=== PATIENT | female | born 1970 | race Caucasian/White ===

== ENCOUNTER 2018-08-08 13:10 | Emergency (ER) | payer OTHER ==
[2018-08-08] MEDS ORDERED: MEPERIDINE HCL 25 MG/0.5 ML ONE (13:59)
[2018-08-08] MEDS ORDERED: KETOROLAC 30 MG/ML INJ ONE (13:59)
[2018-08-08 14:13] LABS: Absolute Lymphocytes (CBC) 1.9 K/uL (0.7-4.9); Absolute Monocytes 0.8 K/uL (0.1-1.3); Absolute Neutrophil 3.6 K/uL (1.8-8.0); Basophils % 1.1 % (0-1.3); Eosinophils % 2.3 % (0-4.4); Hematocrit 39.2 % (36.0-45.0); Lymphocytes % 28.8 % (15.3-44.8); MPV 8.9 fL (7.6-11.3); Monocytes % 11.7 % (3.3-12.3); RBC Red Blood Cell Count 4.73 M/uL (3.86-4.86)
[2018-08-08 14:44] LABS: Potassium 4.3 mmol/L (3.5-5.1)
--- NOTE | 2018-08-08 15:09 | RAD REPORT ---
EXAM DESCRIPTION: CT - Abdomen Pelvis W Contrast - 08/08/2018 3:01 pm CLINICAL HISTORY: Fall, blunt force trauma to the right-side of the abdomen 2 days earlier COMPARISON: CT imaging January 18, 2018 TECHNIQUE: Biphasic, helical CT imaging of the abdomen and pelvis was performed following 100 ml non -ionic IV contrast. No oral contrast administered. All CT scans are performed using dose optimization technique as appropriate and may include automated exposure control or mA/KV adjustment according to patient size. FINDINGS: Trace amount of pleural fluid is seen in the bilateral posterior gutters. There is trace a telectasis. No fracture of the lower ribcage. No traumatic injury to the liver or right kidney. Gallbladder is absent. No biliary tree dilatation. Spleen, pancreas and kidneys show no parenchymal abnormalities. No adjacent stranding or hemorrhagic change. Symmetric renal function is seen with no hydronephrosis or suspicious renal mass. No pyelonephritis o r acute parenchymal process. No bladder abnormalities. No adrenal abnormalities. No dilated bowel loops or bowel wall thickening. No bowel injury evident. No free air, free fluid or inflammatory stranding. Patient has a small fat only umbilical hernia stable from prior imaging. [place] bassam and ovaries show no suspicious findings. No suspicious bony findings. Vascular calcifications are present. IMPRESSION: No pneumothorax, rib fracture or other acute finding in the right lung base. No injury to the solid abdominal viscera or bowel. No acute abdominal or pelvic finding.
--- NOTE | 2018-08-08 15:58 | ER ---
Nurse's Notes [facility] Name: Mony Taylor Age: 48 yrs Sex: Female : 1970 Arrival Date: 08/08/2018 Time: 13:17 Bed 7 Private MD: Dileep Blackwood T Diagnosis: Rib contusion Presentation: 08/08 13:23 Presenting complaint: Patient states: she fell on her right side Monday on a railing on ca1 the porch. She's taking Flexirel which was prescribed by the TeleMedicine. Transition of care: patient was not received from another setting of care. Onset of symptoms was August 06, 2018. Risk Assessment: Do you want to hurt yourself or someone else? Patient reports no desire to harm self or others. Initial Sepsis Screen: Does the patient meet any 2 criteria? No. Patient's initial sepsis screen is negative. Does the patient have a suspected source of infection? No. Patient's initial sepsis screen is negative. Care prior to arrival: None. 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 - Social history:: Smoking status: Patient uses tobacco products, smokes one-half pack cigarettes per day. - Ebola Screening: : No symptoms or risks identified at this time. - Family history:: not pertinent. - Hospitalizations: : No recent hospitalization is reported. Screenin:08 Abuse screen: Denies threats or abuse. Nutritional screening: No deficits noted. tw2 Tuberculosis screening: No symptoms or risk factors identified. Fall Risk None identified. Assessment: 13:35 General: Appears in no apparent distress. slender, well groomed, Behavior is calm, tw2 cooperative, appropriate for age. Pain: Complains of pain in right lateral chest and lower back. Neuro: Level of Consciousness is awake, alert, obeys commands, Oriented to person, place, time, situation. Cardiovascular: Heart tones S1 S2 Capillary refill < 3 seconds Patient's skin is warm and dry. Respiratory: Reports cough that is non-productive, "i was just getting over a cold before i feel and hit they rail and now it hurts when i cough" Airway is patent Respiratory effort is even, unlabored, Respiratory pattern is regular, symmetrical, Breath sounds are clear bilaterally. GI: No signs and/or symptoms were reported involving the gastrointestinal system. Abdomen is round non-distended, Bowel sounds present X 4 quads. : No signs and/or symptoms were reported regarding the genitourinary system. EENT: No signs and/or symptoms were reported regarding the EENT system. Derm: No signs and/or symptoms reported regarding the dermatologic system. Musculoskeletal: Circulation, motion, and sensation intact. Range of motion: intact in all extremities. 14:41 Reassessment: Patient appears in no apparent distress at this time. Patient and/or tw2 family updated on plan of care and expected duration. Pain level reassessed. Patient is alert, oriented x 3, equal unlabored respirations, skin warm/dry/pink. Patient states feeling better. 15:20 Reassessment: Patient appears in no apparent distress at this time. Patient and/or tw2 family updated on plan of care and expected duration. Pain level reassessed. Patient is alert, oriented x 3, equal unlabored respirations, skin warm/dry/pink. Patient states feeling better. 16:07 Reassessment: Patient appears in no apparent distress at this time. Patient and/or tw2 family updated on plan of care and expected duration. Pain level reassessed. Patient is alert, oriented x 3, equal unlabored respirations, skin warm/dry/pink. Patient states feeling better. Vital Signs: 13:31 BP 136 / 98; Pulse 82; Resp 19; Temp 98; Pulse Ox 98% on R/A; Weight 72.57 kg; Height 5 ca1 ft. 6 in. (167.64 cm); Pain 10/10; 14:39 BP 136 / 82; Pulse 64; Resp 17; Pulse Ox 96% on R/A; Pain 7/10; tw2 15:57 BP 138 / 75; Pulse 58; Resp 17; Pulse Ox 95% on R/A; Pain 7/10; tw2 13:31 Body Mass Index 25.82 (72.57 kg, 167.64 cm) ca1 ED Course: 13:17 Patient arrived in ED. mr 13:17 Dileep Blackwood MD is Private Physician. mr 13:28 Triage completed. ca1 13:31 Arm band placed on left wrist. ca1 13:33 Usama Carlisle MD is Attending Physician. rn 13:33 Placed in gown. Bed in low position. Call light in reach. Side rails up X2. Adult w/ tw2 patient. Pulse ox on. NIBP on. Warm blanket given. Pillow given. 13:38 Cheri Ordonez RN is Primary Nurse. tw2 13:50 Inserted saline lock: 20 gauge in right antecubital area, using aseptic technique. tw2 Blood collected. 14:13 X-ray completed. Patient tolerated procedure well. Patient moved to radiology via jb2 wheelchair. Patient moved back from radiology. 14:14 XRAY Chest Pa And Lat (2 Views) In Process Unspecified. EDMS 14:42 Radiology exam delayed due to lab results not completed at this time. (BUN/Creatinine). vm2 15:01 CT completed. Patient tolerated procedure well. Patient moved to CT via stretcher. Patient moved back from CT. 15:02 CT Abd/Pelvis - W/Contrast In Process Unspecified. EDMS 16:06 No provider procedures requiring assistance completed. IV discontinued, intact, tw2 bleeding controlled, No redness/swelling at site. Pressure dressing applied. 17:34 INCENTIVE SPIROMETRY Sent. tw2 Administered Medications: 13:55 Drug: Demerol 25 mg Route: IVP; Site: right antecubital; tw2 14:41 Follow up: Response: No adverse reaction; Pain is decreased tw2 13:58 Drug: TORadol 30 mg Route: IVP; Site: right antecubital; tw2 14:41 Follow up: Response: No adverse reaction; Pain is decreased tw2 16:02 Drug: [place] 10 mg-325 mg 1 tabs Route: PO; tw2 16:07 Follow up: Response: No adverse reaction tw2 Outcome: 15:57 Discharge ordered by . rn 16:07 Discharged to home via wheelchair, with significant other. tw2 16:07 Condition: stable 16:07 Discharge instructions given to patient, significant other, Instructed on discharge instructions, follow up and referral plans. no drinking with medication, no driving heavy equipment, medication usage, incentive spirometer Demonstrated understanding of instructions, follow-up care, medications, incentive spirometer Prescriptions given X 1. 16:14 Patient left the ED. iw Signatures: Dispatcher [employer] AUDIEFlakita Francis, LuisSonia Craven Irene RN DERICK iw Usama Carlisle MD MD rn Wise, Tara, RN RN tw2 [facility] Pastora Tinajero RN RN ca1 Corrections: (The following items were deleted from the chart) 14:40 14:39 BP 136 / 82; Pulse 64bpm; Resp 17bpm; Pulse Ox 96% RA; tw2 tw2
--- NOTE | 2018-08-08 15:58 | EDPHYS ---
Physician Documentation [facility] Name: Mony Taylor Age: 48 yrs Sex: Female : 1970 Arrival Date: 08/08/2018 Time: 13:17 Bed 7 Private MD: Dileep Blackwood T ED Physician Usama Carlisle HPI: 08/08 14:02 This 48 yrs old Female presents to ER via Wheelchair with complaints of Fall rn Injury, Flank Pain. 14:02 Details of fall: The patient fell from an upright position. Onset: The symptoms/episode rn began/occurred 2 day(s) ago. Associated injuries: The patient sustained injury to the chest. Severity of symptoms: At their worst the symptoms were moderate, in the emergency department the symptoms are unchanged. The patient has not experienced similar symptoms in the past. Reports tripped up by dogs, on porch, fell and hit right flank/ribs, saw telemedicine doc, got prescription for lisinopril, . 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 - Social history:: Smoking status: Patient uses tobacco products, smokes one-half pack cigarettes per day. - Ebola Screening: : No symptoms or risks identified at this time. - Family history:: not pertinent. - Hospitalizations: : No recent hospitalization is reported. ROS: 14:06 Constitutional: Negative for fever, chills, and weight loss, Neck: Negative for injury, rn pain, and swelling, Cardiovascular: +right chest/rib pain Respiratory: Negative for shortness of breath, + cough and pleuritic pain Abdomen/GI: Negative for abdominal pain, nausea, vomiting, diarrhea, and constipation, Back: + low back pain MS/Extremity: Negative for injury and deformity, Skin: Negative for injury, rash, and discoloration, Neuro: Negative for headache, weakness, numbness, tingling, and seizure. Exam: 14:06 Constitutional: This is a well developed, well nourished patient who is awake, alert, rn + appears uncomfortable Head/Face: Normocephalic, atraumatic. Neck: No vertebral point tenderness. Chest/axilla: No ecchymosis, no crepitus, + tenderness along right lateral inferior ribs Cardiovascular: Regular rate and rhythm, No pulse deficits. Respiratory: Lungs have equal breath sounds bilaterally, clear to auscultation, No increased work of breathing, no retractions or nasal flaring. Back: No spinal tenderness. MS/ Extremity: Pulses equal, no cyanosis. Neurovascular intact. Full, normal range of motion. Equal circumference. Neuro: Awake and alert, GCS 15, oriented to person, place, time, and situation. Cranial nerves II-XII grossly intact. Motor strength 5/5 in all extremities. Sensory grossly intact. Vital Signs: 13:31 BP 136 / 98; Pulse 82; Resp 19; Temp 98; Pulse Ox 98% on R/A; Weight 72.57 kg; Height 5 ca1 ft. 6 in. (167.64 cm); Pain 10/10; 14:39 BP 136 / 82; Pulse 64; Resp 17; Pulse Ox 96% on R/A; Pain 7/10; tw2 15:57 BP 138 / 75; Pulse 58; Resp 17; Pulse Ox 95% on R/A; Pain 7/10; tw2 13:31 Body Mass Index 25.82 (72.57 kg, 167.64 cm) ca1 MDM: 13:33 Patient medically screened. rn 15:56 Data reviewed: vital signs, nurses notes, lab test result(s), radiologic studies, CT rn scan, plain films, and as a result, I will discharge patient. Counseling: I had a detailed discussion with the patient and/or guardian regarding: the historical points, exam findings, and any diagnostic results supporting the discharge/admit diagnosis, lab results, radiology results, the need for outpatient follow up, to return to the emergency department if symptoms worsen or persist or if there are any questions or concerns that arise at home. Response to treatment: the patient's symptoms have markedly improved after treatment, and as a result, I will discharge patient. Special discussion: I discussed with the patient/guardian in detail that at this point there is no indication for admission to the hospital. It is understood, however, that if the symptoms persist or worsen the patient needs to return immediately for re-evaluation. 08/08 13:46 Order name: CBC with Diff; Complete Time: 14:57 rn 08/08 13:46 Order name: Basic Metabolic Panel; Complete Time: 14:57 rn 08/08 13:46 Order name: Lipase; Complete Time: 14:57 rn 08/08 13:46 Order name: XRAY Chest Pa And Lat (2 Views) rn 08/08 13:46 Order name: CT Abd/Pelvis - W/Contrast; Complete Time: 15:32 rn 08/08 16:06 Order name: INCENTIVE SPIROMETRY tw2 08/08 13:46 Order name: IV Saline Lock - Large Bore; Complete Time: 14:07 rn Administered Medications: 13:55 Drug: Demerol 25 mg Route: IVP; Site: right antecubital; tw2 14:41 Follow up: Response: No adverse reaction; Pain is decreased tw2 13:58 Drug: TORadol 30 mg Route: IVP; Site: right antecubital; tw2 14:41 Follow up: Response: No adverse reaction; Pain is decreased tw2 16:02 Drug: [place] 10 mg-325 mg 1 tabs Route: PO; tw2 16:07 Follow up: Response: No adverse reaction tw2 Disposition: 08/08/18 15:57 Discharged to Home. Impression: Rib contusion. - Condition is Stable. - Discharge Instructions: Rib Contusion. - Prescriptions for Tylenol- Codeine #3 300-30 mg Oral Tablet - take 1 tablet by ORAL route every 6 hours As needed; 20 tablet. - Medication Reconciliation Form, Thank You Letter, Antibiotic Education, Prescription Opioid Use, Work release form form. - Follow up: Private Physician; When: As needed; Reason: Recheck today's complaints, Re-evaluation by your physician. - Problem is new. - Symptoms have improved. Signatures: Dispatcher [employer] Joaquina Fisher RN RN iw Nieto, Roman, MD MD rn Wise, Tara, RN RN tw2 Pastora Tinajero RN RN [facility] Corrections: (The following items were deleted from the chart) 16:14 15:57 08/08/2018 15:57 Discharged to Home. Impression: Rib contusion. Condition is iw Stable. Forms are Medication Reconciliation Form, Thank You Letter, Antibiotic Education, Prescription Opioid Use. Follow up: Private Physician; When: As needed; Reason: Recheck today's complaints, Re-evaluation by your physician. Problem is new. Symptoms have improved. rn
[2018-08-08] MEDS ORDERED: HYDROCODONE/APAP 10/325 TAB ONE (16:10)
[2018-08-08 16:31] VITALS: TEMP 98
[2018-08-08 16:34] VITALS: BP 138/75; O2SAT 95
--- NOTE | 2018-08-08 19:21 | RAD REPORT ---
EXAM DESCRIPTION: Shanel Grewal (2 Views)08/08/2018 2:21 pm CLINICAL HISTORY: Chest pain COMPARISON: July 2017 FINDINGS: The lungs appear clear of acute infiltrate. The heart is normal size A rib fracture is not seen IMPRESSION: No acute abnormalities displayed
== END 2018-08-08 16:14 | disposition home or self-care (01) ==
LOC: ER 13:10
DX: S20.219A Contusion of unspecified front wall of thorax, initial encounter (principal); W01.0XXA Fall on same level from slipping, tripping and stumbling without subsequent striking against object, initial encounter; Y93.89 Activity, other specified; Y92.89 Other specified places as the place of occurrence of the external cause; Z88.2 Allergy status to sulfonamides; I10 Essential (primary) hypertension; F17.210 Nicotine dependence, cigarettes, uncomplicated
CPT/HCPCS: 36415; 71046; 74177; 80048; 83690; 85025; 96374; 96375; 99284; J2175; Q9967

== ENCOUNTER 2023-08-18 16:02 | Inpatient (IN) | payer OTHER ==
[2023-08-18 16:48] LABS: Specific Gravity 1.027 (1.005-1.030); Urine Bacteria None Seen /HPF (<20); Urine Bilirubin NEGATIVE (Negative); Urine Blood Trace (Negative); Urine Clarity Extremely Turbid (Clear); Urine Color Yellow (Yellow); Urine Glucose NEGATIVE (Negative); Urine Mucus 4+ /HPF (None Seen); Urine Protein 1+ (Negative); Urine Urobilinogen 1+ (Normal); Urine pH 5.5 (5.0-7.0)
--- NOTE | 2023-08-18 16:56 | RAD REPORT ---
EXAM DESCRIPTION: CT - Stone Protocol - 08/18/2023 4:34 pm CLINICAL HISTORY: Abdominal pain. Right flank pain COMPARISON: 2020 TECHNIQUE: Computed axial tomography of the abdomen pelvis was obtained without oral or IV contrast. Lack of IV and oral contrast limits evaluation of solid organs, appendix, bowel, and vessels. Allen l reformatted images were obtained and reviewed. All CT scans are performed using dose optimization technique as appropriate and may include automated exposure control or mA/KV adjustment according to patient size. FINDINGS: A renal calculus is not seen. An ureteral calculus is not noted. A bladder calculus is not present. No hydronephrosis The liver, spleen, pancreas and adrenals appear grossly normal Cholecystectomy. Small umbilical hernia There is no evidence of diverticulitis. The appendix appears normal No adnexal mass IMPRESSION: Negative for a genitourinary calculus
[2023-08-18] MEDS ORDERED: MORPHINE 4 MG/ML SYR ONE (17:26)
[2023-08-18] MEDS ORDERED: ONDANSETRON 4 MG/2 ML VIAL ONE (17:26)
[2023-08-18] MEDS ORDERED: CIPROFLOXACIN 400mg IV 400 MG/200 ML BAG IV ONE (17:27)
[2023-08-18] MEDS ORDERED: NA CHLORIDE 0.9% 1,000 ML ONE (17:27)
[2023-08-18 17:30] LABS: Hematocrit 39.3 % (36.0-45.0); Lymphocytes % 34.6 % (15.3-44.8); MCV 76.5 fL (80-100); MPV 8.6 fL (7.6-11.3); Platelets 185 thou/uL (152-406); RBC Red Blood Cell Count 5.14 M/uL (3.86-4.86)
[2023-08-18 17:36] LABS: Protime INR 1.23
--- NOTE | 2023-08-18 17:48 | EDPHYS ---
Physician Documentation [facility] Name: Mony Taylor Age: 53 yrs Sex: Female : 1970 Arrival Date: 08/18/2023 Time: 16:02 Bed 13 Private MD: ED Physician Usama Carlisle HPI: 08/18 16:22 This 53 yrs old Female presents to ER via Ambulatory with complaints of Urinary rn Retention, Low Back Pain, Abdominal Pain. 16:22 The patient presents with pain that is acute, with no known mechanism of injury. The rn symptoms are located in the right mid back. The pain radiates to the abdomen. Onset: The symptoms/episode began/occurred 1 week(s) ago. Modifying factors: The patient symptoms are alleviated by nothing, the patient symptoms are aggravated by nothing. Associated signs and symptoms: Pertinent positives: fever, nausea, urinary retention, Pertinent negatives: hematuria. Severity of symptoms: At their worst the symptoms were moderate, in the emergency department the symptoms are unchanged. The patient has not experienced similar symptoms in the past. The patient has been recently seen by a physician:. Patient reports urinary symptoms for approximately a week, finished course of nitrofurantoin, now having fever to 103 with bilateral flank pain. No history of kidney stones. Reports also having difficulty urinating. Not eating or drinking much. Reports abdominal pain.. Historical: - Allergies: 16:12 Sulfa (Sulfonamide Antibiotics); aa5 - PMHx: 16:12 Hypertension; aa5 - PSHx: 16:12 Cholecystectomy; aa5 - Immunization history:: Adult Immunizations up to date. - Family history:: not pertinent. - Social history:: Smoking status: Patient reports the use of cigarette tobacco products, smokes one pack cigarettes per day. Patient/guardian denies using alcohol, street drugs, IV drugs. - Hospitalizations: : No recent hospitalization is reported. ROS: 16:22 Constitutional: Positive for fever and chills Cardiovascular: Negative for chest pain, rn palpitations, and edema, Respiratory: Negative for shortness of breath, cough, wheezing, and pleuritic chest pain, Abdomen/GI: Positive for abdominal pain and nausea Back: Positive for back pain : Difficulty urinating. Able to urinate but does not feel like she can empty. MS/Extremity: Negative for injury and deformity, Skin: Negative for injury, rash, and discoloration, Neuro: Positive for generalized weakness and malaise Exam: 16:22 Constitutional: This is a well developed, well nourished patient who is awake, alert, rn and in no acute distress. Cardiovascular: Regular rate and rhythm. No pulse deficits. Respiratory: No increased work of breathing, no retractions or nasal flaring. Abdomen/GI: Soft, mild right-sided tenderness. No rebound. No focal tenderness or mass Back: Positive for right-sided CVA tenderness MS/ Extremity: Pulses equal, no cyanosis. Neuro: Awake and alert, GCS 15 Vital Signs: 16:11 BP 159 / 113; Pulse 89; Resp 18 S; Temp 98.8(O); Pulse Ox 97% on R/A; Weight 64.86 kg aa5 (R); Height 5 ft. 6 in. (R); 16:30 BP 183 / 84; Pulse 98; Resp 18; Pulse Ox 98% on R/A; me1 17:30 BP 176 / 95; Pulse 95; Resp 20; Pulse Ox 98% on R/A; me1 18:30 BP 177 / 87; Pulse 96; Resp 20; Pulse Ox 96% on R/A; me1 16:11 Body Mass Index 23.08 (64.86 kg, 167.64 cm) aa5 MDM: 16:10 Patient medically screened. rn 16:58 ED course: Postvoid residual normal, no urine left in bladder. No need for urinary rn catheter.. 17:46 Differential diagnosis: UTI, pyelonephritis, kidney stone, hydronephrosis. Data rn reviewed: vital signs, nurses notes, lab test result(s), radiologic studies, CT scan, and as a result, I will admit patient. Consideration of Admission/Observation Patient was admitted/placed on observation. Escalation of care including admission/observation considered. Counseling: I had a detailed discussion with the patient and/or guardian regarding the historical points, exam findings, and any diagnostic results supporting the discharge/admit diagnosis, lab results, radiology results, the need for further work-up and treatment in the hospital. Response to treatment: the patient's symptoms have mildly improved after treatment, and as a result, I will admit patient. ED course: Patient clinically has pyelonephritis, is on her second oral antibiotic as an outpatient and not improving actually worsening. CT without contrast negative for stone and hydronephrosis but also no other acute findings. Patient states outpatient urine showed infection on Monday, urine here not convincing for infection. Patient with 103 fever, myalgias, chills and rigors. Will admit for further workup, IV antibiotics, follow-up culture of urine.. 08/18 16:21 Order name: Blood Culture Adult (2) rn 08/18 16:21 Order name: CBC with Diff; Complete Time: 17:45 rn 08/18 16:21 Order name: CMP rn 08/18 16:21 Order name: Lactate w/ 2H reflex if indic.; Complete Time: 17:48 rn 08/18 16:21 Order name: Protime (+inr); Complete Time: 17:45 rn 08/18 16:21 Order name: Ptt, Activated; Complete Time: 17:45 rn 08/18 16:21 Order name: Urinalysis w/ reflexes; Complete Time: 16:57 rn 08/18 17:50 Order name: SARS RAPID rn 08/18 17:50 Order name: Flu rn 08/18 20:23 Order name: Urinalysis w/ reflexes EDMS 08/18 20:23 Order name: Basic Metabolic Panel EDMS 08/18 20:23 Order name: Basic Metabolic Panel EDMS 08/18 20:23 Order name: CBC with Automated Diff EDMS 08/18 20:23 Order name: CBC with Automated Diff EDMS 08/18 16:21 Order name: CT Stone Protocol; Complete Time: 16:57 rn 08/18 16:21 Order name: EKG; Complete Time: 16:22 rn 08/18 16:21 Order name: Accucheck; Complete Time: 17:39 rn 08/18 16:21 Order name: Cardiac monitoring; Complete Time: 19:45 rn 08/18 16:21 Order name: EKG - Nurse/Tech; Complete Time: 19:45 rn 08/18 16:21 Order name: IV Saline Lock - Large Bore; Complete Time: 17:23 rn 08/18 16:21 Order name: Labs collected and sent; Complete Time: 17:24 rn 08/18 16:21 Order name: O2 Per Protocol; Complete Time: 17:24 rn 08/18 16:21 Order name: O2 Sat Monitoring; Complete Time: 17:24 rn 08/18 16:21 Order name: Vital Signs; Complete Time: 16:42 rn 08/18 16:25 Order name: Bladder Scanner; Complete Time: 16:42 rn Administered Medications: 17:37 Drug: NS 0.9% IV 1000 ml IV at 1000 ml once Route: IV; Rate: 1000 ml; Site: right me1 antecubital; 18:38 Follow up: IV Status: Completed infusion; IV Intake: 1000ml me1 17:38 Drug: morphine IVP or IV 4 mg IVP once over 4 mins Route: IVP; Infused Over: 4 mins; me1 Site: right antecubital; 17:38 Follow up: Response: No adverse reaction; Pain is decreased me1 17:38 Drug: Ondansetron IVP 4 mg IVP once; over 2 minutes Route: IVP; Site: right antecubital;me1 17:38 Follow up: Response: No adverse reaction; Nausea is decreased me1 17:38 Drug: Ciprofloxacin IVPB 400 mg 200 ml IVPB once over 60 mins Volume: 200 ml; Route: me1 IVPB; Infused Over: 60 mins; Site: right antecubital; 18:38 Follow up: IV Status: Completed infusion; IV Intake: 200ml me1 Disposition Summary: 08/18/23 17:48 Hospitalization Ordered Notes: Hospitalization Status: Observation rn Provider: Gerardo Greene rn Location: Telemetry/[facility] (observation) rn Condition: Stable rn Problem: new rn Symptoms: have worsened rn Bed/Room Type: Standard rn Room Assignment: 206(08/18/23 20:29) cg Diagnosis - UTI/ Urinary tract infection, site not specified rn - Fever, unspecified rn Forms: - Medication Reconciliation Form rn - SBAR form rn - Leadership Thank You Letter rn Signatures: Dispatcher [employer] Usama Pastrana MD MD rn Calderon, Audri RN RN Татьяна Diaz RN RN Daksha Stanley RN RN [email or web address] Deanna Martinez RN RN me1 Corrections: (The following items were deleted from the chart) 19:46 19:10 Social history: Smoking status: Patient denies any tobacco usage or history of. [id number] jw7 20:29 17:48 rn cg
--- NOTE | 2023-08-18 17:48 | ER ---
Nurse's Notes [facility] Name: Mony Taylor Age: 53 yrs Sex: Female : 1970 Arrival Date: 08/18/2023 Time: 16:02 Bed 13 Private MD: Diagnosis: UTI/ Urinary tract infection, site not specified;Fever, unspecified Presentation: 08/18 16:11 Chief complaint: Patient states: diagnosed with UTI yesterday, given Rocephin IM and aa5 prescribed Cipro by PCP. Pt c/o pain to right lower back pain and states only drops of urine over the last 3 days. 16:11 Coronavirus screen: At this time, the client does not indicate any symptoms associated aa5 with coronavirus-19. Ebola Screen: Patient denies travel to an Ebola-affected area in the 21 days before illness onset. Initial Sepsis Screen: Does the patient meet any 2 criteria? No. Patient's initial sepsis screen is negative. Does the patient have a suspected source of infection? No. Patient's initial sepsis screen is negative. Risk Assessment: Do you want to hurt yourself or someone else? Patient reports no desire to harm self or others. Onset of symptoms was August 2023. 16:11 Method Of Arrival: Ambulatory aa5 16:11 Acuity: AMADOU 3 aa5 Historical: - Allergies: 16:12 Sulfa (Sulfonamide Antibiotics); aa5 - PMHx: 16:12 Hypertension; aa5 - PSHx: 16:12 Cholecystectomy; aa5 - Immunization history:: Adult Immunizations up to date. - Family history:: not pertinent. - Social history:: Smoking status: Patient reports the use of cigarette tobacco products, smokes one pack cigarettes per day. Patient/guardian denies using alcohol, street drugs, IV drugs. - Hospitalizations: : No recent hospitalization is reported. Screenin:10 [facility] ED Fall Risk Assessment (Adult) History of falling in the last 3 months, jw7 including since admission No falls in past 3 months (0 pts) Score/Fall Risk Level 0 - 2 = Low Risk Oriented to surroundings, Maintained a safe environment, Educated pt \T\ family on fall prevention, incl call for assistance when getting out of bed. Abuse screen: Denies threats or abuse. Denies injuries from another. Nutritional screening: No deficits noted. Tuberculosis screening: No symptoms or risk factors identified. Assessment: 16:30 Reassessment: Urine sent to lab, pt voided 10mls. . aa5 16:30 Reassessment: Pt to CT via wheelchair. . aa5 16:43 Reassessment: Pt back from CT scan. Post-void residual per bladder scan: 0mls, MD was aa5 notified. . 19:10 General: Appears in no apparent distress. uncomfortable, Behavior is calm, cooperative. jw7 Pain: Complains of pain in epigastric and right mid back Pain does not radiate. Pain currently is 7 out of 10 on a pain scale. Quality of pain is described as aching, dull, throbbing, gnawing, Pain began suddenly, Is continuous. Neuro: Betancourt Agitation-Sedation Scale (RASS): 0 - Alert and Calm Level of Consciousness is awake, alert, obeys commands, Oriented to person, place, time, situation. Cardiovascular: Capillary refill < 3 seconds Clubbing of nail beds is absent JVD is absent Patient's skin is warm and dry. Respiratory: Airway is patent Trachea midline Respiratory effort is even, unlabored, Respiratory pattern is regular, symmetrical. GI: Abdomen is flat, non-distended, Bowel sounds present X 4 quads. Abd is soft. : Reports urinary frequency. EENT: No deficits noted. No signs and/or symptoms were reported regarding the EENT system. Derm: Skin is intact, is healthy with good turgor, Skin is dry, Skin is normal, Skin temperature is warm. Musculoskeletal: Circulation, motion, and sensation intact. Range of motion: intact in all extremities. 19:25 General: Received Report from DERICK Huerta. jw7 Vital Signs: 16:11 BP 159 / 113; Pulse 89; Resp 18 S; Temp 98.8(O); Pulse Ox 97% on R/A; Weight 64.86 kg aa5 (R); Height 5 ft. 6 in. (R); 16:30 BP 183 / 84; Pulse 98; Resp 18; Pulse Ox 98% on R/A; me1 17:30 BP 176 / 95; Pulse 95; Resp 20; Pulse Ox 98% on R/A; me1 18:30 BP 177 / 87; Pulse 96; Resp 20; Pulse Ox 96% on R/A; me1 16:11 Body Mass Index 23.08 (64.86 kg, 167.64 cm) aa5 ED Course: 16:05 Patient arrived in ED. im 16:10 Usama Carlisle MD is Attending Physician. rn 16:11 Arm band placed on. aa5 16:15 Triage completed. aa5 16:35 CT Stone Protocol In Process Unspecified. EDMS 16:37 Deanna Martinez, RN is Primary Nurse. me1 17:23 Inserted saline lock: 22 gauge in right antecubital area, using aseptic technique. me1 17:24 Blood Culture Adult (2) Sent. me1 17:24 CBC with Diff Sent. me1 17:24 CMP Sent. me1 17:24 Lactate w/ 2H reflex if indic. Sent. me1 17:24 Protime (+inr) Sent. me1 17:24 Ptt, Activated Sent. me1 17:47 Gerardo Greene MD is Hospitalizing Provider. rn 18:38 Flu Sent. me1 18:38 SARS RAPID Sent. me1 18:59 Notified ED physician of a critical lab result(s). covid swab: positive. me1 19:10 Patient has correct armband on for positive identification. Bed in low position. Call jw7 light in reach. 19:45 EKG done, by ED staff. [facility] 20:50 Provided Education on: need for admit. 6 20:50 No provider procedures requiring assistance completed. Patient admitted, IV remains in tm6 place. Administered Medications: 17:37 Drug: NS 0.9% IV 1000 ml IV at 1000 ml once Route: IV; Rate: 1000 ml; Site: right me1 antecubital; 18:38 Follow up: IV Status: Completed infusion; IV Intake: 1000ml me1 17:38 Drug: morphine IVP or IV 4 mg IVP once over 4 mins Route: IVP; Infused Over: 4 mins; wi1 Site: right antecubital; 17:38 Follow up: Response: No adverse reaction; Pain is decreased me1 17:38 Drug: Ondansetron IVP 4 mg IVP once; over 2 minutes Route: IVP; Site: right antecubital;wi1 17:38 Follow up: Response: No adverse reaction; Nausea is decreased me1 17:38 Drug: Ciprofloxacin IVPB 400 mg 200 ml IVPB once over 60 mins Volume: 200 ml; Route: me1 IVPB; Infused Over: 60 mins; Site: right antecubital; 18:38 Follow up: IV Status: Completed infusion; IV Intake: 200ml me1 Medication: 20:51 VIS not applicable for this client. tm6 Intake: 18:38 IV: 200ml; Total: 200ml. me1 18:38 IV: 1000ml; Total: 1200ml. me1 Outcome: 17:48 Decision to Hospitalize by Provider. rn 20:49 Admitted to Med/surg accompanied by nurse, room 206, with chart, Report called to 6 Stacey SEPULVEDA 20:49 Condition: stable 20:49 Instructed on the need for admit, 21:13 Patient left the ED. jb4 Signatures: Dispatcher [employer] EDUsama Oliveros MD MD rn Calderon, Audri RN RN aa5 Porfirio Terry RN RN jb4 Daksah Ng RN RN jw7 Shila Meneses Michelle, RN RN wi1 Karli Mckinney RN RN 6 Corrections: (The following items were deleted from the chart) 16:21 16:11 BP 159 / 113; Pulse 89bpm; Resp 18bpm; Spontaneous; Pulse Ox 97% RA; aa5 aa5 19:46 19:10 Social history: Smoking status: Patient denies any tobacco usage or history of. jw7 jw7 19:46 19:10 Pain: Complains of pain in abdomen and low back Pain does not radiate. Pain jw7 currently is 3 out of 10 on a pain scale. Quality of pain is described as crampy, throbbing, Pain began suddenly, Is continuous, jw7
[2023-08-18 17:53] LABS: Albumin 3.2 g/dL (3.4-5.0); Bilirubin Total 0.3 mg/dL (0.2-1.0); Potassium 3.6 mEq/L (3.5-5.1); Protein, Total 7.3 g/dL (6.4-8.2)
[2023-08-18 18:59] LABS: SARS-CoV-2 Antigen Rapid Res Positive (Negative)
[2023-08-18] MEDS ORDERED: ONDANSETRON 4 MG/2 ML VIAL IV PRN (20:19)
[2023-08-18] MEDS ORDERED: ACETAMINOPHEN 325 MG TABLET PO PRN (20:19)
[2023-08-18 21:25] VITALS: BMI 23.1
[2023-08-18] MEDS: NA CHLORIDE 0.9% 1,000 ML IV SCH (21:40)
[2023-08-18] MEDS: HYDROCODONE/APAP 7.5/325 MG TAB PO PRN (22:51)
[2023-08-18 23:57] VITALS: O2SAT 95
--- NOTE | 2023-08-19 02:27 | P.HP ---
Certification for Inpatient Patient admitted to: Inpatient With expected LOS: >2 Midnights Practitioner: I am a practitioner with admitting privileges, knowledge of patient current condition, hospital course, and medical plan of care. Services: Services provided to patient in accordance with Admission requirements found in Title 42 Section 412.3 of the Code of Federal Regulations Patient History Date of Service: 08/19/23 Reason for admission: COVID-19 disease, UTI. History of Present Illness: 53-year-old female patient with medical history significant for hypertension, hyperlipidemia, anxiety disorder who also had recent UTI was fully treated. She complained of lethargy weakness and chest congestion. She was evaluated in the ED and UA was concerning for ongoing infection however her COVID-19 test came up positive. She was admitted for inpatient care. She denied of episode of cough, chills, rigor, nausea, vomiting. Allergies sulfamethoxazole [From Bactrim] Allergy (Intermediate, Verified 08/18/23 21:31) lip and throat swelling trimethoprim [From Bactrim] Allergy (Intermediate, Verified 08/18/23 21:31) Itching/Hives/Rash Home Medications: ALPRAZolam [Xanax*] 0.5 mg PO BID 08/18/23 Escitalopram [Lexapro*] 20 mg PO DAILY 08/18/23 Hydroxyzine HCl [Atarax] 10 mg PO BEDTIME 08/18/23 Losartan Potassium [Cozaar] 25 mg PO DAILY 08/18/23 Omeprazole [Prilosec] 40 mg PO DAILY 08/18/23 carvediloL [Coreg*] 25 mg PO BID 08/18/23 - Past Medical/Surgical History Has patient received pneumonia vaccine in the past: No Diabetic: No -: HTN -: Anxiety -: Insomnia -: predm -: Anna -: EGD with Esophageal stretching - Family History Father -: Heart disease Brother -: Hypertension, Diabetes - Social History Smoking Status: Current every day smoker Alcohol use: No CD- Drugs: Yes Caffeine use: Yes Place of Residence: Home Review of Systems General: Weakness, Malaise Eyes: Unremarkable ENT: Unremarkable Respiratory: Shortness of Breath Cardiovascular: Unremarkable Gastrointestinal: Unremarkable Genitourinary: Unremarkable Musculoskeletal: Unremarkable Integumentary: Unremarkable Neurological: Unremarkable Physical Examination - Vital Signs Temperature: 99.2 F Blood Pressure: 148/84 Pulse: 82 Respirations: 17 Pulse Ox (%): 95 - Physical Exam General: Alert, Oriented x3 HEENT: Atraumatic Neck: Supple Respiratory: Normal air movement Cardiovascular: Regular rate/rhythm, Normal S1 S2 Gastrointestinal: Soft and benign Musculoskeletal: No swelling Neurological: Normal speech, Normal strength at 5/5 x4 extr - Studies Laboratory Data (last 24 hrs) 08/18/23 08/18/23 08/18/23 17:18 17:18 17:18 WBC 5.80 Hgb 12.9 Hct 39.3 Plt Count 185 PT 13.5 H INR 1.23 APTT 30.7 Sodium 138 Potassium 3.6 BUN 9 Creatinine 0.83 Glucose 92 Total Bilirubin 0.3 AST 8 L ALT 20 Alkaline Phosphatase 65 Microbiology Data (last 24 hrs): 08/18/23 18:36 Nasopharnyx Influenza Type A Antigen Screen - Final 08/18/23 18:36 Nasopharnyx Influenza Type B Antigen Screen - Final Assessment and Plan - Plan COVID-19 disease: Patient does have confirmed COVID-19 disease and clinical symptoms. Continue Paxlovid dose. Continue vitamin C, Tylenol, zinc therapy. Will continue as needed breathing treatment Will follow clinical symptomatology. Hypertension: We will monitor vital signs per unit protocol and continue outpatient oral antihypertensive medications. Hyperlipidemia: Continue statin therapy. Anxiety disorder: Continue current anxiety medication. UTI: Patient does have suspicion for UTI. Urinalysis with reflex urine culture done. Will continue antibiotic therapy pending further review. Prophylaxis: Lovenox for DVT prophylaxis CODE STATUS: Full code Disposition: We we will treat her UTI, COVID-19 disease and she will be discharged when she is deemed clinically stable for outpatient treatment. - Advance Directives Does patient have a Living Will: No Does patient have a Durable POA for Healthcare: No
[2023-08-19 03:16] LABS: Absolute Lymphocytes (CBC) 2.4 K/uL (0.7-4.9); Hematocrit 33.7 % (36.0-45.0); Lymphocytes % 51.7 % (15.3-44.8); MPV 8.9 fL (7.6-11.3); Platelets 148 thou/uL (152-406); RBC Red Blood Cell Count 4.37 M/uL (3.86-4.86)
[2023-08-19 03:58] LABS: Potassium 3.3 mEq/L (3.5-5.1)
[2023-08-19] MEDS: HYDROCODONE/APAP 7.5/325 MG TAB PO PRN (04:00)
[2023-08-19] MEDS: NA CHLORIDE 0.9% 1,000 ML IV SCH ×2 (06:16→16:51)
[2023-08-19 06:19] LABS: Specific Gravity 1.011 (1.005-1.030); Urine Bacteria <20 /HPF (<20); Urine Bilirubin NEGATIVE (Negative); Urine Blood Negative (Negative); Urine Clarity Extremely Turbid (Clear); Urine Color Light-Yellow (Yellow); Urine Glucose NEGATIVE (Negative); Urine Mucus 1+ /HPF (None Seen); Urine Protein NEGATIVE (Negative); Urine RBC <5 /HPF (None Seen); Urine Urobilinogen Normal (Normal); Urine pH 5.5 (5.0-7.0)
--- NOTE | 2023-08-19 08:52 | P.PN ---
Subjective Date of Service: 08/19/23 Chief Complaint: COVID-19 disease, UTI. Subjective: No new changes, Doing well Patient is alert and oriented x 3 Resting in the bed c/o increased cough, wheezing and insomnia NAD Denies any pain or shortness of breath Vital stable <Kael Nieto - Last Filed: 08/19/23 08:49> Date of Service: 08/19/23 <Navya Martinez - Last Filed: 08/19/23 21:10> Review of Systems 10-point ROS is otherwise unremarkable <Herman Nietofarnkie - Last Filed: 08/19/23 08:49> Physical Examination - Vital Signs Temperature: 99.2 F Blood Pressure: 148/84 Pulse: 82 Respirations: 17 Pulse Ox (%): 95 - Physical Exam General: Alert, In no apparent distress, Oriented x3 HEENT: Atraumatic, Normocephalic Neck: Supple, 2+ carotid pulse no bruit Respiratory: Clear to auscultation bilaterally, Normal air movement, Other (couging) Cardiovascular: No edema, Normal pulses Capillary refill: <2 Seconds Gastrointestinal: Normal bowel sounds, Soft and benign, Non-distended Musculoskeletal: No clubbing, No swelling Integumentary: No rashes, No significant lesion Neurological: Normal speech, Normal tone, Normal affect - Studies Laboratory Data (last 24 hrs) 08/18/23 08/18/23 08/18/23 17:18 17:18 17:18 WBC 5.80 Hgb 12.9 Hct 39.3 Plt Count 185 PT 13.5 H INR 1.23 APTT 30.7 Sodium 138 Potassium 3.6 BUN 9 Creatinine 0.83 Glucose 92 Total Bilirubin 0.3 AST 8 L ALT 20 Alkaline Phosphatase 65 Microbiology Data (last 24 hrs): 08/18/23 18:36 Nasopharnyx Influenza Type A Antigen Screen - Final 08/18/23 18:36 Nasopharnyx Influenza Type B Antigen Screen - Final <Herman Nietofrankie - Last Filed: 08/19/23 08:49> - Studies Microbiology Data (last 24 hrs): 08/18/23 18:36 Nasopharnyx Influenza Type A Antigen Screen - Final 08/18/23 18:36 Nasopharnyx Influenza Type B Antigen Screen - Final <Navya Martinez - Last Filed: 08/19/23 21:10> Assessment And Plan - Plan COVID-19 disease: Patient does have confirmed COVID-19 disease and clinical symptoms. Continue Paxlovid dose. Continue vitamin C, Tylenol, zinc therapy. Will continue as needed breathing treatment Will follow clinical symptomatology. Hypertension: We will monitor vital signs per unit protocol and continue outpatient oral antihypertensive medications. Hyperlipidemia: Continue statin therapy. Anxiety disorder: Continue current anxiety medication. UTI: Patient does have suspicion for UTI. Urinalysis with reflex urine culture done. Will continue antibiotic therapy pending further review. Prophylaxis: Lovenox for DVT prophylaxis CODE STATUS: Full code Disposition: We we will treat her UTI, COVID-19 disease and she will be disc harged when she is deemed clinically stable for outpatient treatment. Discharge Plan: Home Plan to discharge in: 24 Hours - Code Status/Comfort Care Code Status Assessed: Yes (full code) Code Status: Full Code Physician Review: Patient Assessed, Agree with Above Assessment and Plan Critical Care: No Time Spent Managing PTS Care (In Minutes): 35 (minutes) <Kael Nieto - Last Filed: 08/19/23 08:49> - Plan Pt seen and examined. I agree with the note by the CAREER COACH. Continue enhanced resp precaution, paxlovid, vitamins C &D, and zinc sulfate. <Navya Martinez - Last Filed: 08/19/23 21:10>
[2023-08-19] MEDS: NIRMATRELVIR/RITONAVIR TABLET PO SCH ×2 (09:00→21:00)
[2023-08-19] MEDS ORDERED: NIRMATRELVIR/RITONAVIR TABLET PO SCH (09:00)
[2023-08-19] MEDS ORDERED: VITAMIN D 1000 UNIT TAB PO SCH (09:00)
[2023-08-19] MEDS ORDERED: ALBUTEROL 2.5 MG/3 ML NEB SOL NEB PRN (09:20)
[2023-08-19] MEDS: HYDROCODONE/APAP 5/325 MG TAB PO PRN ×3 (10:05→22:39)
[2023-08-19] MEDS: PANTOPRAZOLE 40MG TABLET PO SCH (10:05)
[2023-08-19] MEDS: POTASSIUM CL SA 10 MEQ TAB PO SCH ×2 (10:05→14:13)
[2023-08-19] MEDS: ALPRAZOLAM 0.5 MG TABLET PO SCH ×2 (10:05→22:40)
[2023-08-19] MEDS: ASCORBIC ACID 500 MG TABLET PO SCH (10:06)
[2023-08-19] MEDS: ZINC SULFATE 220 MG CAP PO SCH (10:06)
[2023-08-19] MEDS: LOSARTAN POTASSIUM 50 MG TABLET PO SCH (10:06)
[2023-08-19] MEDS: carvediloL 25 MG TAB PO SCH ×2 (10:06→22:42)
[2023-08-19] MEDS: CEFTRIAXONE 1,000 MG in NA CHLORIDE 0.9% 50 ML IVPB SCH (10:07)
[2023-08-19] MEDS: ESCITALOPRAM 20 MG TAB PO SCH (10:07)
[2023-08-19] MEDS: ENOXAPARIN 40 MG/0.4 ML SQ SCH (10:07)
[2023-08-19] MEDS ORDERED: ALBUTEROL 2.5 MG/3 ML NEB SOL NEB SCH (11:00)
[2023-08-19] MEDS: BENZONATATE 100 MG CAP PO PRN ×2 (17:06→22:40)
[2023-08-19] MEDS ORDERED: HYDROXYZINE HCL 10 MG/5 ML SYRUP UD PO SCH (21:00)
[2023-08-20] MEDS: NA CHLORIDE 0.9% 1,000 ML IV SCH (03:00)
[2023-08-20 03:29] LABS: Absolute Lymphocytes (CBC) 2.1 K/uL (0.7-4.9); Hematocrit 33.1 % (36.0-45.0); Lymphocytes % 53.1 % (15.3-44.8); MCV 77.1 fL (80-100); MPV 8.7 fL (7.6-11.3); Platelets 145 thou/uL (152-406); RBC Red Blood Cell Count 4.29 M/uL (3.86-4.86)
[2023-08-20 03:42] LABS: Bicarbonate 27 mEq/L (21-32); Glomerular Filtration Rate 108 ml/min (=/>90); Glucose Level 97 mg/dL (74-106); Potassium 4.1 mEq/L (3.5-5.1); Sodium Level 141 mEq/L (136-145)
[2023-08-20 03:45] LABS: BUN Blood Urea Nitrogen < 3 mg/dL (7-18)
[2023-08-20] MEDS: NIRMATRELVIR/RITONAVIR TABLET PO SCH (08:42)
[2023-08-20] MEDS: ENOXAPARIN 40 MG/0.4 ML SQ SCH (08:42)
[2023-08-20] MEDS: ALPRAZOLAM 0.5 MG TABLET PO SCH (08:43)
[2023-08-20] MEDS: ESCITALOPRAM 20 MG TAB PO SCH (08:43)
[2023-08-20] MEDS: ASCORBIC ACID 500 MG TABLET PO SCH (08:43)
[2023-08-20] MEDS: PANTOPRAZOLE 40MG TABLET PO SCH (08:45)
[2023-08-20] MEDS: CEFTRIAXONE 1,000 MG in NA CHLORIDE 0.9% 50 ML IVPB SCH (08:46)
[2023-08-20] MEDS: carvediloL 25 MG TAB PO SCH (08:46)
[2023-08-20] MEDS: ZINC SULFATE 220 MG CAP PO SCH (08:46)
[2023-08-20] MEDS: HYDROCODONE/APAP 5/325 MG TAB PO PRN (08:54)
[2023-08-20] MEDS: LOSARTAN POTASSIUM 50 MG TABLET PO SCH (09:00)
[2023-08-20 09:04] VITALS: BP 138/74
--- NOTE | 2023-08-20 09:49 | P.DS ---
Admission Date: 08/18/23 Discharge Date: 08/20/23 Reason for Admission: COVID-19 disease, UTI. - Problems (1) COVID-19 Status: Acute (2) UTI (urinary tract infection) Status: Acute Brief History of Present Illness: History of Present Illness: 53-year-old female patient with medical history significant for hypertension, hyperlipidemia, anxiety disorder who also had recent UTI was fully treated. She complained of lethargy weakness and chest congestion. She was evaluated in the ED and UA was concerning for ongoing infection however her COVID-19 test came up positive. She was admitted for inpatient care. She denied of episode of cough, chills, rigor, nausea, vomiting. Hospital Course: Ms. Taylor is a pleasant 53-year-old female patient with a past medical history significant for hypertension, hyperlipidemia, anxiety disorder who was admitted to the [facility] on 08/19/2023 with creasing weakness and chest congestion . Patient was admitted to the hospital as patient tested positive for COVID-19, started on Paxlovid, breathing treatment as needed, Tylenol as needed. Patient also was given antibiotic therapy for urinary tract infection. On 08/20/2023, patient was seen on morning rounds and deemed medically stable for discharge. Patient was discharged with instructions to schedule follow-up a ppointments with PCP in 1 week. Patient was provided prescriptions for Paxlovid 300mg p.o. twice daily for another 3 days and Tesslon Pearls 200mg po tid prn cough. The patient was given the opportunity to ask questions and reported no further questions. 1. Please call and schedule a follow-up appointment with your PCP in 1 week - Please follow-up with your PCP for medication refills/adjustments -Please call if any questions regarding hospital stay -Please call nursing station at [phone] if any nursing or medication questions -Return to the emergency room if symptoms worsen <Kael Nieto - Last Filed: 08/20/23 09:49> Admission Date: 08/18/23 Discharge Date: 08/21/23 Hospital Course: Pt seen and examined. I agree withe the note by the STAFFING ASSISTANT. Ok to discharge pt. <Navya Martinez - Last Filed: 08/21/23 21:55> Disposition: ROUTINE DISCHARGE Discharge Condition: GOOD Vital Signs/Physical Exam: Temp Pulse Resp BP Pulse Ox 97.5 F 74 16 138/74 94 08/20/23 04:00 08/20/23 08:46 08/20/23 08:54 08/20/23 08:46 08/20/23 08:54 General: Alert, Oriented x3 HEENT: Atraumatic, Normocephalic Neck: Supple, 2+ carotid pulse no bruit Respiratory: Clear to auscultation bilaterally, Normal air movement, Other (Of) Cardiovascular: No edema, Normal pulses Capillary refill: <2 Seconds Gastrointestinal: Normal bowel sounds, Soft and benign, Non-distended, W/out succussion splash Musculoskeletal: No clubbing, No swelling, No contractures Integumentary: No rashes, No breakdown Neurological: Normal speech, Normal tone, Cranial nerves 3-12 intact Laboratory Data at Discharge: WBC 3.90 thou/uL (4.3-10.9) L 08/20/23 02:44 Hgb 10.8 g/dL (12.0-15.0) L 08/20/23 02:44 Hct 33.1 % (36.0-45.0) L 08/20/23 02:44 Plt Count 145 thou/uL (152-406) L 08/20/23 02:44 PT 13.5 SECONDS (9.5-12.5) H 08/18/23 17:18 INR 1.23 08/18/23 17:18 APTT 30.7 SECONDS (24.3-36.9) 08/18/23 17:18 Sodium 141 mEq/L (136-145) 08/20/23 02:44 Potassium 4.1 mEq/L (3.5-5.1) D 08/20/23 02:44 BUN < 3 mg/dL (7-18) L 08/20/23 02:44 Creatinine 0.55 mg/dL (0.55-1.02) 08/20/23 02:44 Glucose 97 mg/dL (74-106) 08/20/23 02:44 Total Bilirubin 0.3 mg/dL (0.2-1.0) 08/18/23 17:18 AST 8 U/L (15-37) L 08/18/23 17:18 ALT 20 U/L (13-56) 08/18/23 17:18 Alkaline Phosphatase 65 U/L (45-117) 08/18/23 17:18 <Kael Nieto - Last Filed: 08/20/23 09:49> Vital Signs/Physical Exam: Temp Pulse Resp BP Pulse Ox 97.9 F 74 16 138/74 94 08/20/23 08:00 08/20/23 08:46 08/20/23 08:54 08/20/23 08:46 08/20/23 08:54 Laboratory Data at Discharge: WBC 3.90 thou/uL (4.3-10.9) L 08/20/23 02:44 Hgb 10.8 g/dL (12.0-15.0) L 08/20/23 02:44 Hct 33.1 % (36.0-45.0) L 08/20/23 02:44 Plt Count 145 thou/uL (152-406) L 08/20/23 02:44 PT 13.5 SECONDS (9.5-12.5) H 08/18/23 17:18 INR 1.23 08/18/23 17:18 APTT 30.7 SECONDS (24.3-36.9) 08/18/23 17:18 Sodium 141 mEq/L (136-145) 08/20/23 02:44 Potassium 4.1 mEq/L (3.5-5.1) D 08/20/23 02:44 BUN < 3 mg/dL (7-18) L 08/20/23 02:44 Creatinine 0.55 mg/dL (0.55-1.02) 08/20/23 02:44 Glucose 97 mg/dL (74-106) 08/20/23 02:44 Total Bilirubin 0.3 mg/dL (0.2-1.0) 08/18/23 17:18 AST 8 U/L (15-37) L 08/18/23 17:18 ALT 20 U/L (13-56) 08/18/23 17:18 Alkaline Phosphatase 65 U/L (45-117) 08/18/23 17:18 <Navya Martinez - Last Filed: 08/21/23 21:55> Diet: Low sodium Activity: Ad cassy Physician Review: Patient Assessed, Agree with Above Assessment and Plan Time spent managing pt's care (in minutes): 55 (Minutes) <Kael Nieto - Last Filed: 08/20/23 09:49> <Navya Martinez - Last Filed: 08/21/23 21:55> Home Medications: ALPRAZolam [Xanax*] 0.5 mg PO BID 08/18/23 Escitalopram [Lexapro*] 20 mg PO DAILY 08/18/23 Hydroxyzine HCl [Atarax] 10 mg PO BEDTIME 08/18/23 Losartan Potassium [Cozaar] 25 mg PO DAILY 08/18/23 Omeprazole [Prilosec] 40 mg PO DAILY 08/18/23 carvediloL [Coreg*] 25 mg PO BID 08/18/23 Benzonatate [Tessalon Perle*] 200 mg PO TID PRN #15 cap 08/20/23 Nirmatrelvir/Ritonavir [Paxlovid 300-100 mg Dose Pack] 1 each PO BID 3 Days #6 tab 08/20/23 New Medications: Nirmatrelvir/Ritonavir [Paxlovid 300-100 mg Dose Pack] 1 each PO BID 3 Days #6 tab Benzonatate [Tessalon Perle*] 200 mg PO TID PRN #15 cap PRN Reason: Cough Physician Discharge Instructions: PROBLEM: UTI. Covid GOAL: Clear understanding of disease process INSTRUCTIONS: Diet: Low sodium Activity: As tolerated Date Given: Ms. Taylor is a pleasant 53-year-old female patient with a past medical history significant for hypertension, hyperlipidemia, anxiety disorder who was admitted to the [facility] on 08/19/2023 with creasing weakness and chest congestion . Patient was admitted to the hospital as patient tested positive for COVID-19, started on Paxlovid, breathing treatment as needed, Tylenol as needed. Patient also was given antibiotic therapy for urinary tract infection. On 08/20/2023, patient was seen on morning rounds and deemed medically stable for discharge. Patient was discharged with instructions to schedule follow-up appointments with PCP in 1 week. Patient was provided prescriptions for Paxlovid 300mg p.o. twice daily for another 3 days and Tesslon Pearls 200mg po tid prn cough. The patient was given the opportunity to ask questions and reported no further questions. 1. Please call and schedule a follow-up appointment with your PCP in 1 week - Please follow-up with your PCP for medication refills/adjustments -Please call if any questions regarding hospital stay -Please call nursing station at [phone] if any nursing or medication questions -Return to the emergency room if symptoms worsen Followup: Jackson Loomis MD [Primary Care Provider] -
[2023-08-20 11:13] VITALS: TEMP 97.9
--- NOTE | 2023-08-21 15:08 | EKG ---
Test Date: 2023-08-18 Test Time: 19:39:34 Rn Interventional: GENTRY MEASUREMENT RESULTS: Intervals: Rate: 71 VA: 152 QRSD: 78 QT: 382 QTc: 415 [place]: P: 52 VA: 152 QRS: 18 T: 25 INTERPRETIVE STATEMENTS: Normal sinus rhythm Normal ECG Compared to ECG 08/14/2017 16:17:00 Left ventricular hypertrophy no longer present Electronically Signed On 08-21-23 15:01:45 CUTTER OUT by Jalen Silverman
== END 2023-08-20 12:35 | disposition home or self-care (01) | DRG 689 ==
LOC: ER 16:02 → ERHOLD 20:19 → 2ND 20:51
PROVIDERS: ADMIT Internal Medicine Nephrology; ATTEND Hospitalist
DX: N39.0 Urinary tract infection, site not specified (principal); U07.1 COVID-19; I10 Essential (primary) hypertension; E78.5 Hyperlipidemia, unspecified; F41.9 Anxiety disorder, unspecified; G47.00 Insomnia, unspecified; F17.210 Nicotine dependence, cigarettes, uncomplicated; R33.9 Retention of urine, unspecified; Z88.1 Allergy status to other antibiotic agents; Z88.2 Allergy status to sulfonamides; Z79.02 Long term (current) use of antithrombotics/antiplatelets; Z90.49 Acquired absence of other specified parts of digestive tract; Z79.01 Long term (current) use of anticoagulants; Z79.899 Other long term (current) drug therapy
CPT/HCPCS: 36415; 74176; 76377; 80048; 80053; 81001; 83605; 85025; 85610; 85730; 87040; 87086; 87088; 87804; 87811; 93005; J0696; J0744; J1650; J2405; J7030; J7613; J8499

== ENCOUNTER 2024-08-11 14:40 | Emergency (ER) | payer OTHER ==
[2024-08-11] MEDS ORDERED: NA CHLORIDE 0.9% 1,000 ML ONE (14:59)
[2024-08-11] MEDS ORDERED: ONDANSETRON 4 MG/2 ML VIAL ONE (14:59)
[2024-08-11] MEDS ORDERED: KETOROLAC 30 MG/ML INJ ONE (14:59)
[2024-08-11 15:15] LABS: Specific Gravity 1.022 (1.005-1.030); Urine Bilirubin NEGATIVE (Negative); Urine Blood Negative (Negative); Urine Clarity Clear (Clear); Urine Color Light-Yellow (Yellow); Urine Glucose NEGATIVE (Negative); Urine Ketones NEGATIVE (Negative); Urine Microscopic Reflex YN NO UMIC; Urine Nitrite NEGATIVE (Negative); Urine Protein NEGATIVE (Negative); Urine Urobilinogen 1+ (Normal)
[2024-08-11 15:15] LABS: Absolute Basophils 0.1 K/uL (0-0.5); Absolute Eosinophils 0.2 K/uL (0-0.5); Absolute Lymphocytes (CBC) 2.8 K/uL (0.7-4.9); Absolute Monocytes 0.6 K/uL (0.1-1.3); Absolute Neutrophil 5.6 K/uL (1.8-8.0); Basophils % 1.1 % (0-1.3); Eosinophils % 1.8 % (0-4.4); Hematocrit 39.6 % (36.0-45.0); Hemoglobin 12.9 g/dL (12.0-15.0); Lymphocytes % 30.2 % (15.3-44.8); MCH 26.4 pg (27.0-35.0); MCHC 32.7 g/dL (32.0-36.0); MCV 80.8 fL (80-100); MPV 8.3 fL (7.6-11.3); Monocytes % 6.4 % (3.3-12.3); Neutrophils % 60.5 % (41.7-73.7); Platelets 224 thou/uL (152-406)
[2024-08-11 15:32] LABS: Albumin 3.4 g/dL (3.4-5.0); Albumin/Globulin Ratio 0.9 (1.1-1.8); Anion Gap 5.9 mEq/L (5.0-15.0); Bilirubin Total 0.4 mg/dL (0.2-1.0); Globulin 3.8 g/dL (2.3-3.5); Potassium 3.9 mEq/L (3.5-5.1); Protein, Total 7.2 g/dL (6.4-8.2)
--- NOTE | 2024-08-11 15:48 | RAD REPORT ---
EXAMINATION: CT ABDOMEN AND PELVIS WITHOUT CONTRAST CLINICAL INDICATION: Female, 54 years old.FLANK PAIN TECHNIQUE: CT abdomen and pelvis was performed, without IV contrast, as per department protocol. Axia l, sagittal and coronal reconstructions were obtained. One or more of the following dose reduction techniques were used: Automated exposure control, adjustment of the mA and/or kV according to the pat ient size, and/or iterative reconstruction. Unless otherwise specified, incidental findings do not require dedicated imaging follow-up. [id number]. IV CONTRAST: Not administered. COMPARISON: 11/17/2023 FINDINGS: The lack of intravenous contrast limits the sensitivity of this exam for evaluation of solid visceral organs, vascular structures, and retroperitoneum. LOWER CHEST: No acute process identified.No significant pericardial effusion. UPPER GI: No significant abnormality. LIVER: No significant focal abnormality. GALLBLADDER/BILE DUCTS: Cholecystectomy. Mild extra-hepatic biliary ductal dilatation is likely relat ed to the post-cholecystectomy state. Consider correlating with LFT's.? PANCREAS: Atrophy, but otherwise unremarkable. SPLEEN: Unremarkable. ADRENALS: No adrenal masses. KIDNEYS AND URETERS: No hydronephrosis.Within the limitations of a noncontrast CT, no suspicious tirnh l lesions.No renal or ureteral calculi identified. ABDOMINAL AORTA AND OTHER VESSELS: Moderate atherosclerotic changes without aortic aneurysm. PERITONEUM: No abnormal free fluid. No free air. LYMPH NODES: No pathologic lymphadenopathy. ABDOMINAL WALL: Small fat containing umbilical hernia. SMALL BOWEL/COLON: Small bowel has normal course and caliber. No colonic wall thickening or pericolon ic inflammatory changes.Normal appendix. URINARY BLADDER: Underdistended but grossly unremarkable. REPRODUCTIVE ORGANS: No pathologic process. MUSCULOSKELETAL: No acute or suspicious osseous abnormality. ADDITIONAL FINDINGS: None. IMPRESSION: No acute or significant abnormalities in the abdomen or pelvis, with evaluation limited by lack of IV contrast. No renal or ureteral calculi. Normal appendix.
[2024-08-11] MEDS ORDERED: DIAZEPAM 5 MG TABLET ONE (16:24)
[2024-08-11] MEDS ORDERED: HYDROCODONE/APAP 5/325 MG TAB ONE (16:24)
--- NOTE | 2024-08-11 16:32 | EDPHYS ---
Physician Documentation [facility] Name: Mony Taylor Age: 54 yrs Sex: Female : 1970 Arrival Date: 08/11/2024 Time: 14:40 Bed 19 Private MD: ED Physician Usama Carlisle HPI: 08/11 16:29 This 54 yrs old Female presents to ER via Ambulatory with complaints of Urinary kb Problem, Low Back Pain, Nausea. 16:29 Pt is a 54 year old female who presents for pain to mid left back that radiates to left kb abd. States pain started 2 days ago. Denies vomiting, diarrhea fever. States she has had some nausea and difficulty urinating. Historical: - Allergies: 14:50 Sulfa (Sulfonamide Antibiotics); db 14:50 Bactrim; db - PMHx: 14:50 Hypertension; db - PSHx: 14:50 Cholecystectomy; db - Immunization history:: Adult Immunizations unknown. - Infectious Disease History:: Denies. - Social history:: Smoking status: Patient reports the use of cigarette tobacco products, smokes one-half pack cigarettes per day. ROS: 16:28 Constitutional: As per HPI kb Exam: 16:28 Constitutional: This is a well developed, well nourished patient who is awake, alert, kb and in no acute distress. Head/Face: Normocephalic, atraumatic. ENT: Moist Mucous membranes Cardiovascular: Regular rate Respiratory: Respirations even and unlabored. No increased work of breathing. Talking in full sentences Abdomen/GI: Soft, non-tender. No distention Back: No spinal tenderness. No costovertebral tenderness. Full range of motion. Skin: Warm, dry with normal turgor. Normal color. MS/ Extremity: Pulses equal, no cyanosis. Neurovascular intact. Full, normal range of motion. Neuro: Awake and alert, GCS 15, oriented to person, place, time, and situation. Vital Signs: 14:52 BP 164 / 91; Pulse 69; Resp 16; Temp 98.6; Pulse Ox 97% ; Weight 63.05 kg; Height 5 ft. db 5 in. ; Pain 10/10; 15:30 BP 165 / 87; Pulse 61; Resp 16; Pulse Ox 97% ; me1 16:00 BP 156 / 82; Pulse 70; Resp 15; Pulse Ox 97% ; me1 16:30 Pain 8/10; me1 16:32 BP 158 / 79; Pulse 68; Resp 16; Temp 98.3; Pulse Ox 97% ; me1 14:52 Body Mass Index 23.13 (63.05 kg, 165.1 cm) db 14:52 Pain Scale: Adult db 16:30 Pain Scale: Adult me1 MDM: 14:44 Medical Screening Exam initiated kb 16:29 Differential diagnosis: kidney stone, uti, muscle strain. Data reviewed: vital signs, kb nurses notes. Counseling: I had a detailed discussion with the patient and/or guardian regarding the historical points, exam findings, and any diagnostic results supporting the discharge/admit diagnosis, lab results, radiology results, the need for outpatient follow up, a family practitioner, to return to the emergency department if symptoms worsen or persist or if there are any questions or concerns that arise at home. 08/11 14:51 Order name: CBC with Diff; Complete Time: 15:20 kb 08/11 14:51 Order name: CMP; Complete Time: 15:34 kb 08/11 14:51 Order name: Lipase; Complete Time: 15:34 kb 08/11 14:51 Order name: Urinalysis w/ reflexes; Complete Time: 15:20 kb 08/11 14:51 Order name: CT Stone Protocol; Complete Time: 15:52 kb 08/11 14:51 Order name: IV Saline Lock; Complete Time: 15:10 kb 08/11 14:51 Order name: Labs collected and sent; Complete Time: 15:11 kb Administered Medications: 15:15 Drug: TORadol - Ketorolac IVP 15 mg IVP once Route: IVP; Site: right antecubital; me1 16:30 Follow up: Pain 8/10 Adult; Response: No adverse reaction; Pain is decreased me1 15:15 Drug: Ondansetron IVP 4 mg IVP once; over 2 minutes Route: IVP; Site: right antecubital;me1 16:30 Follow up: Response: No adverse reaction; Nausea is decreased me1 15:15 Drug: NS 0.9% IV 1000 ml IV at 1 bolus Per protocol; to be given as a bolus over 60 me1 minutes Route: IV; Rate: 1 bolus; Site: right antecubital; 16:30 Follow up: Response: No adverse reaction; IV Status: Completed infusion; IV Intake: me1 1000ml 16:29 Drug: HYDROcodone-acetaminophen PO 5 mg-325 mg 1 tabs PO once Route: PO; me1 16:32 Follow up: Response: No adverse reaction me1 16:29 Drug: Diazepam PO 5 mg PO once Route: PO; me1 16:32 Follow up: Response: No adverse reaction me1 Disposition Summary: 08/11/24 16:31 Discharge Ordered Notes: Location: Home kb Condition: Stable kb Diagnosis - Left flank pain kb Followup: kb - With: Emergency Department - When: As needed - Reason: Worsening of condition Followup: kb - With: Private Physician - When: 2 - 3 days - Reason: Recheck today's complaints, Continuance of care, Re-evaluation by your physician Discharge Instructions: - Discharge Summary Sheet kb - Musculoskeletal Pain kb - Flank Pain, Adult, [id number] kb Forms: - Medication Reconciliation Form kb - Antibiotic Education kb - Prescription Opioid Use kb - Patient Portal Instructions kb - Leadership Thank You Letter kb Prescriptions: - Cyclobenzaprine 10 mg Oral tablet - take 1 tablet ORAL route every 8 hours As needed; 21 tablet; Refills: 0, kb Product Selection Permitted - Diclofenac Sodium 75 mg Oral tablet, delayed release (enteric coated) - take 1 tablet ORAL route 2 times per day As needed; 30 tablet; Refills: 0, kb Product Selection Permitted Addendum: 08/12/2024 17:19 Co-signature as Attending Physician, Usama Carlisle MD I reviewed the patient's care r n provided by the Advanced Practice Provider and agree with the diagnosis and treatment plan. Signatures: Dispatcher [employer] EDRoselyn Lopez, GREEN BUILDING MATERIALS DISTRIBUTOR-C GREEN BUILDING MATERIALS DISTRIBUTOR-Ckb Usama Carlisle MD MD rn Benton, Danielle, RN RN db Eddleman, Michelle, RN RN me1 Corrections: (The following items were deleted from the chart) 08/11 14:51 14:51 CBC+H.LAB.BRZ ordered. EDMS EDMS 14:51 14:51 COMPREHENSIVE METABOLIC PANEL+C.LAB.BRZ ordered. EDMS EDMS 14:51 14:51 LIPASE+C.LAB.BRZ ordered. EDMS EDMS 14:51 14:51 Urinalysis+U.LAB.BRZ ordered. EDMS EDMS 14:51 14:51 Stone Protocol+CT.RAD.BRZ ordered. EDMS EDMS 16:30 16:29 Pt is a 54 year old female who presents for pain to mid left back that radiates kb to left abd. . kb
--- NOTE | 2024-08-11 16:32 | ER ---
Nurse's Notes [facility] Name: Mony Taylor Age: 54 yrs Sex: Female : 1970 Arrival Date: 08/11/2024 Time: 14:40 Bed 19 Private MD: Diagnosis: Left flank pain Presentation: 08/11 14:50 Chief complaint: Patient states: LEFT LOWER BACK PAIN STARTED SRIDHAR NIGHT. HYDRATION db NOT HELPING. HX OF KIDNEY STONE. Coronavirus screen: Client denies travel out of the [place] in the last 14 days. At this time, the client does not indicate any symptoms associated with coronavirus-19. Ebola Screen: Patient negative for fever greater than or equal to 101.5 degrees Fahrenheit, and additional compatible Ebola Virus Disease symptoms Patient denies exposure to infectious person. Patient denies travel to an Ebola-affected area in the 21 days before illness onset. No symptoms or risks identified at this time. 14:50 Method Of Arrival: Ambulatory db 14:50 Initial Sepsis Screen: Does the patient meet any 2 criteria? No. Patient's initial db sepsis screen is negative. Does the patient have a suspected source of infection? No. Patient's initial sepsis screen is negative. Risk Assessment: Do you want to hurt yourself or someone else? Patient reports no desire to harm self or others. Onset of symptoms was August 09, 2024. 14:50 Acuity: AMADOU 3 db Triage Assessment: 14:53 General: Appears in no apparent distress. uncomfortable, Behavior is calm, cooperative. db Pain: Complains of pain in back. Neuro: Level of Consciousness is awake, alert, obeys commands, Oriented to person, place, time, situation. GI: Abdomen is non-distended, Reports nausea. Historical: - Allergies: 14:50 Sulfa (Sulfonamide Antibiotics); db 14:50 Bactrim; db - PMHx: 14:50 Hypertension; db - PSHx: 14:50 Cholecystectomy; db - Immunization history:: Adult Immunizations unknown. - Infectious Disease History:: Denies. - Social history:: Smoking status: Patient reports the use of cigarette tobacco products, smokes one-half pack cigarettes per day. Screenin:11 [facility] ED Fall Risk Assessment (Adult) History of falling in the last 3 months, me1 including since admission No falls in past 3 months (0 pts) Confusion or Disorientation No (0 pts) Intoxicated or Sedated No (0 pts) Impaired Gait No (0 pts) Mobility Assist Device Used No (0 pt) Altered Elimination No (0 pt) Score/Fall Risk Level 0 - 2 = Low Risk Maintained a safe environment, Provided non-skid footwear, Hourly rounding (assess needs \T\ fall precautionary measures) done. Abuse screen: Denies threats or abuse. Nutritional screening: No deficits noted. Tuberculosis screening: No symptoms or risk factors identified. Assessment: 15:11 General: Appears uncomfortable, well groomed, well developed, well nourished, Behavior me1 is calm, cooperative, appropriate for age, Reports Left lower back/flank pain that started Sridhar night with nausea. Pain: Complains of pain in left low back Pain radiates to anterior aspect of left lateral abdomen Pain currently is 10 out of 10 on a pain scale. Quality of pain is described as sharp, shooting, Pain began suddenly, Is continuous. Neuro: Level of Consciousness is awake, alert, obeys commands, Oriented to person, place, time, situation, Appropriate for age. Cardiovascular: Patient's skin is warm and dry. Respiratory: Airway is patent Respiratory effort is even, unlabored, Respiratory pattern is regular, symmetrical. GI: Reports nausea. GI: Abdomen is flat, non-distended, Bowel sounds present X 4 quads. : Reports pain in left flank(s), lower quadrant(s) since Monday. EENT: No signs and/or symptoms were reported regarding the EENT system. Derm: Skin is intact, is healthy with good turgor, Skin is pink, warm \T\ dry. Musculoskeletal: No signs and/or symptoms reported regarding the musculoskeletal system. Vital Signs: 14:52 BP 164 / 91; Pulse 69; Resp 16; Temp 98.6; Pulse Ox 97% ; Weight 63.05 kg; Height 5 ft. db 5 in. ; Pain 10/10; 15:30 BP 165 / 87; Pulse 61; Resp 16; Pulse Ox 97% ; me1 16:00 BP 156 / 82; Pulse 70; Resp 15; Pulse Ox 97% ; me1 16:30 Pain 8/10; me1 16:32 BP 158 / 79; Pulse 68; Resp 16; Temp 98.3; Pulse Ox 97% ; me1 14:52 Body Mass Index 23.13 (63.05 kg, 165.1 cm) db 14:52 Pain Scale: Adult db 16:30 Pain Scale: Adult me1 ED Course: 14:42 Patient arrived in ED. im 14:44 Roselyn Molina [facility]NP-C [facility] kb 14:44 Usama Carlisle MD is Attending Physician. kb 14:51 Triage completed. db 14:53 Arm band placed on Patient placed in an exam room. db 14:55 Deanna Martinez, DERICK is Primary Nurse. me1 15:11 Patient has correct armband on for positive identification. Bed in low position. Call me1 light in reach. Side rails up X 1. Provided Education on: POC. Verbalized understanding. Client placed on continuous cardiac and pulse oximetry monitoring. NIBP monitoring applied. Pulse ox on. NIBP on. 15:11 CBC with Diff Sent. me1 15:11 CMP Sent. me1 15:11 Lipase Sent. me1 15:11 Urinalysis w/ reflexes Sent. me1 15:11 Initial lab(s) drawn, by ut, sent to lab. Urine collected: clean catch specimen, me1 cloudy, lakeisha colored. Inserted saline lock: 22 gauge in right antecubital area, using aseptic technique. 15:11 No provider procedures requiring assistance completed. me1 15:32 CT Stone Protocol In Process Unspecified. EDMS 16:48 IV discontinued, intact, bleeding controlled, No redness/swelling at site. Pressure me1 dressing applied. Administered Medications: 15:15 Drug: TORadol - Ketorolac IVP 15 mg IVP once Route: IVP; Site: right antecubital; me1 16:30 Follow up: Pain 8/10 Adult; Response: No adverse reaction; Pain is decreased me1 15:15 Drug: Ondansetron IVP 4 mg IVP once; over 2 minutes Route: IVP; Site: right antecubital;me1 16:30 Follow up: Response: No adverse reaction; Nausea is decreased me1 15:15 Drug: NS 0.9% IV 1000 ml IV at 1 bolus Per protocol; to be given as a bolus over 60 me1 minutes Route: IV; Rate: 1 bolus; Site: right antecubital; 16:30 Follow up: Response: No adverse reaction; IV Status: Completed infusion; IV Intake: me1 1000ml 16:29 Drug: HYDROcodone-acetaminophen PO 5 mg-325 mg 1 tabs PO once Route: PO; me1 16:32 Follow up: Response: No adverse reaction me1 16:29 Drug: Diazepam PO 5 mg PO once Route: PO; me1 16:32 Follow up: Response: No adverse reaction me1 Medication: 15:11 VIS not applicable for this client. me1 Intake: 16:30 IV: 1000ml; Total: 1000ml. me1 Outcome: 16:31 Discharge ordered by . bibi 16:48 Discharged to home ambulatory, with family, me1 16:48 Condition: stable 16:48 Discharge instructions given to patient, family, Instructed on discharge instructions, follow up and referral plans. medication usage, Demonstrated understanding of instructions, follow-up care, medications, Prescriptions given X 2, 16:48 Patient left the ED. me1 Signatures: Dispatcher [employer] EDRoselyn Lopez, STEVO HAIRSPRING STUDDER-Jen Huddleston, RN RN db Shila Meneses Michelle, RN RN me1 Corrections: (The following items were deleted from the chart) 14:54 14:52 Pulse 69bpm; Resp 16bpm; Pulse Ox 97%; Temp 98.6F; 63.05 kg; Height 5 ft. 5 in.; db BMI: 23.1; Pain 04/25, Adult; db
[2024-08-11 19:45] VITALS: O2SAT 97
[2024-08-11 19:53] VITALS: BP 158/79; TEMP 98.3
== END 2024-08-11 16:48 | disposition home or self-care (01) ==
LOC: ER 14:40
DX: R10.32 Left lower quadrant pain (principal); R11.0 Nausea; F17.210 Nicotine dependence, cigarettes, uncomplicated
CPT/HCPCS: 96361; 85025; 36415; 81003; 83690; 80053; 76377; 74176; 96375; 96374; 99284; J2405; J7030

== ENCOUNTER 2024-08-12 01:59 | Emergency (ER) | payer OTHER ==
[2024-08-12] MEDS ORDERED: ONDANSETRON 4 MG/2 ML VIAL ONE (03:40)
[2024-08-12] MEDS ORDERED: MORPHINE 4 MG/ML SYR ONE ×2 (03:41→06:26)
[2024-08-12] MEDS ORDERED: NA CHLORIDE 0.9% 1,000 ML ONE (04:20)
[2024-08-12 04:31] LABS: Specific Gravity 1.016 (1.005-1.030); Sqamous Epithelial <5 /HPF (None Seen); Urine Bacteria None Seen /HPF (<20); Urine Bilirubin NEGATIVE (Negative); Urine Blood Negative (Negative); Urine Clarity Clear (Clear); Urine Color Colorless (Yellow); Urine Culture Reflex Order NOT NEEDED; Urine Glucose NEGATIVE (Negative); Urine Ketones NEGATIVE (Negative); Urine Microscopic Reflex YN ORDER UMIC; Urine Nitrite NEGATIVE (Negative); Urine Protein NEGATIVE (Negative); Urine RBC None Seen /HPF (None Seen); Urine Urobilinogen Normal (Normal); Urine WBC <5 /HPF (<5)
[2024-08-12 04:33] LABS: Absolute Eosinophils 0.1 K/uL (0-0.5); Absolute Lymphocytes (CBC) 1.9 K/uL (0.7-4.9); Absolute Monocytes 0.6 K/uL (0.1-1.3); Basophils % 0.5 % (0-1.3); Eosinophils % 1.1 % (0-4.4); Hematocrit 38.1 % (36.0-45.0); Hemoglobin 12.8 g/dL (12.0-15.0); Lymphocytes % 19.3 % (15.3-44.8); MCH 27.2 pg (27.0-35.0); MCHC 33.7 g/dL (32.0-36.0); MCV 80.8 fL (80-100); MPV 8.8 fL (7.6-11.3); Monocytes % 6.4 % (3.3-12.3); Neutrophils % 72.7 % (41.7-73.7); Platelets 184 thou/uL (152-406); RBC Red Blood Cell Count 4.72 M/uL (3.86-4.86); Red Cell Distribution Width 17.2 % (12.1-15.2)
[2024-08-12 04:44] LABS: Albumin 3.2 g/dL (3.4-5.0); Albumin/Globulin Ratio 0.8 (1.1-1.8); Anion Gap 9.5 mEq/L (5.0-15.0); Bilirubin Total 0.4 mg/dL (0.2-1.0); Globulin 3.8 g/dL (2.3-3.5); Potassium 3.5 mEq/L (3.5-5.1)
--- NOTE | 2024-08-12 04:51 | RAD REPORT ---
EXAM: US Pelvis Transabdominal, Complete CLINICAL HISTORY: The patient is 54 years old and is Female; ABD PAIN TECHNIQUE: Real-time complete transabdominal pelvic ultrasound with image documentation. COMPARISON: No relevant prior studies available. FINDINGS: Uterus/cervix: Uterus measures 5.9 x 3.0 x 5.5 cm. Endometrium measures 3 mm in thickness. No myometrial mass. Right ovary: Right ovary measures 2.1 x 1.2 x 1.3 cm. Normal blood flow. Left ovary: Left ovary is not seen. Free fluid: No free fluid. Bladder: Unremarkable as visualized. IMPRESSION: No acute findings in the pelvis. Electronically signed by: Lucien Garcia MD 08/12/2024 04:45 AM [facility] 8 Due to temporary technical issues with the [employer] reporting system, reports are being signed by the in-house radiologist without review as a courtesy to ensure prompt reporting the interpreting radiologist is fully responsible for the content of the report. Transcribed Date/Time: 08/12/2024 4:51 AM
--- NOTE | 2024-08-12 06:06 | RAD REPORT ---
EXAM: CT Abdomen and Pelvis With Intravenous Contrast CLINICAL HISTORY: The patient is 54 years old and is Female; ABD PAIN TECHNIQUE: Axial computed tomography images of the abdomen and pelvis with intravenous contrast. Sagittal and coronal reformatted images were created and reviewed. This CT exam was performed using one or more of the following dose reduction techniques: automated exposure control, adjustmen t of the mA and/or kV according to patient size, and/or use of iterative reconstruction technique. COMPARISON: No relevant prior studies available. FINDINGS: Lung bases: Unremarkable. No mass. No consolidation. ABDOMEN: Liver: Unremarkable. No mass. Gallbladder and bile ducts: Gallbladder is surgically absent. No ductal dilation. Pancreas: Unremarkable. No mass. No ductal dilation. Spleen: Unremarkable. No splenomegaly. Adrenals: Unremarkable. No mass. Kidneys and ureters: Unremarkable. No solid mass. No hydronephrosis. Stomach and bowel: Unremarkable. No obstruction. No mucosal thickening. PELVIS: Appendix: No findings to suggest acute appendicitis. Bladder: Unremarkable. Reproductive: Unremarkable as visualized. ABDOMEN and PELVIS: Intraperitoneal space: Unremarkable. No free air. No significant fluid collection. Bones/joints: No acute fracture. No dislocation. Soft tissues: Unremarkable. Vasculature: Unremarkable. No abdominal aortic aneurysm. Lymph nodes: Unremarkable. No enlarged lymph nodes. IMPRESSION: No acute finding in the abdomen/pelvis. Electronically signed by: Lucien Garcia MD 08/12/2024 06:02 AM [facility] 8 Due to temporary technical issues with the PACS/[employer] reporting system, reports are being peri d by the in-house radiologist without review as a courtesy to ensure prompt reporting the interpreting radiologist is fully responsible for the content of the report. Transcribed Date/Time: 08/12/2024 6:05 AM
--- NOTE | 2024-08-12 06:48 | EDPHYS ---
Physician Documentation [facility] Name: Mony Taylor Age: 54 yrs Sex: Female : 1970 Arrival Date: 08/12/2024 Time: 01:59 Bed 17 Private MD: ED Physician Myron Shen HPI: 08/12 03:53 This 54 yrs old Female presents to ER via Wheelchair with complaints of Pelvic Pain, ms3 Low Back Pain, Nausea/Vomiting. 03:53 Violet Flores is a 54-year-old female who presents to the Emergency Department with ms3 worsening pelvic pain. The pain began earlier today and was described as stabbing, initially located in the back and now in the left pelvic area. She has visited the ER once today for this issue. Currently, she is experiencing severe pain that has not improved or worsened with any interventions. Additionally, she reports nausea and vomiting, which started recently. 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 . Historical: - Allergies: 02:14 Bactrim; lg3 02:14 Sulfa (Sulfonamide Antibiotics); lg3 - Home Meds: 02:14 carvedilol oral [Active]; Lexapro Oral [Active]; Xanax Oral [Active]; lg3 - PMHx: 02:14 Hypertension; Anxiety; lg3 - PSHx: 02:14 Cholecystectomy; knee (Cholecystectomy); lg3 - Immunization history:: Adult Immunizations up to date. - Infectious Disease History:: Denies. - Social history:: Smoking status: Patient reports the use of cigarette tobacco products, smokes one-half pack cigarettes per day, Patient/guardian denies using alcohol, street drugs. ROS: 03:53 Constitutional: Negative for fever, and chills. Cardiovascular: Negative for chest ms3 pain, and palpitations. Respiratory: Negative for shortness of breath, cough, wheezing, and pleuritic chest pain, 03:53 MS/Extremity: Negative for injury and deformity, Skin: Negative for injury, rash, and discoloration, 03:53 Abdomen/GI: Positive for abdominal pain, nausea and vomiting, Exam: 03:53 Constitutional: This is a well developed, well nourished patient who is awake, alert, ms3 and in no acute distress. Cardiovascular: Regular rate and rhythm with a normal S1 and S2. No gallops, murmurs, or rubs. Normal PMI, no JVD. No pulse deficits. Respiratory: Lungs have equal breath sounds bilaterally, clear to auscultation and percussion. No rales, rhonchi or wheezes noted. No increased work of breathing, no retractions or nasal flaring. Skin: Warm, dry with normal turgor. Normal color with no rashes, no lesions, and no evidence of cellulitis. MS/ Extremity: Pulses equal, no cyanosis. Neurovascular intact. Full, normal range of motion. 03:53 Abdomen/GI: Inspection: abdomen appears normal, Bowel sounds: normal, in all quadrants, Palpation: moderate abdominal tenderness, in the left lower quadrant, Vital Signs: 02:12 BP 148 / 93; Pulse 85; Resp 16 S; Temp 97.8(O); Pulse Ox 99% on R/A; Weight 63.05 kg lg3 (R); Height 5 ft. 5 in. (R); Pain 10/10; 02:48 BP 183 / 97; Pulse 70; Resp 20; Pulse Ox 97% ; ay 04:00 BP 161 / 82; Pulse 75; Resp 19; Pulse Ox 97% ; ay 05:00 BP 173 / 89; Pulse 75; Pulse Ox 97% ; ay 02:12 Body Mass Index 23.13 (63.05 kg, 165.1 cm) lg3 02:12 Pain Scale: Adult lg3 Loiver Coma Score: 02:30 Eye Response: spontaneous(4). Motor Response: obeys commands(6). Verbal Response: ay oriented(5). Total: 15. MDM: 02:35 Medical Screening Exam initiated ms3 03:53 Differential diagnosis: UTI, Ovarian torsion. ms3 03:56 ED course: CT without contrast performed on 08/11/24 at 1549 negative acute.. ms3 08:15 Data reviewed: vital signs, nurses notes, lab test result(s), radiologic studies, CT ms3 scan, ultrasound, and as a result, I will discharge patient. I considered the following discharge prescriptions or medication management in the emergency department Medications were administered in the Emergency Department. See MAR. Counseling: I had a detailed discussion with the patient and/or guardian regarding the historical points, exam findings, and any diagnostic results supporting the discharge/admit diagnosis, lab results, radiology results, the need for outpatient follow up, to return to the emergency department if symptoms worsen or persist or if there are any questions or concerns that arise at home. Special discussion: Based on the patient's Hx, exam, and Dx evaluation, there is no indication for emergent surgery or inpatient Tx. It is understood by the patient/guardian that if the Sx's persist or worsen they need to return immediately for re-evaluation. ED course: Discussed ultrasound, CT abdomen pelvis, labs with patient. 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 Patient understands and agrees with plan. All questions were answered. Return precautions discussed include worsening symptoms, or any other concerns.. 08/12 02:35 Order name: CBC with Diff; Complete Time: 05:06 ms3 08/12 02:35 Order name: CMP; Complete Time: 05:06 ms3 08/12 02:35 Order name: Lipase; Complete Time: 05:06 ms3 08/12 02:35 Order name: Urinalysis w/ reflexes; Complete Time: 05:06 ms3 08/12 05:13 Order name: Lactate w/ 2H reflex if indic.; Complete Time: 06:44 ms3 08/12 02:35 Order name: US Pelvis Complete 3 08/12 05:13 Order name: CT Abd/Pelvis - IV Contrast Only 3 08/12 02:35 Order name: IV Saline Lock; Complete Time: 03:55 ms3 08/12 02:35 Order name: Labs collected and sent; Complete Time: 04:25 ms3 Administered Medications: 03:55 Drug: morphine IVP or IV 4 mg IVP once over 4 mins Route: IVP; Infused Over: 4 mins; ay Site: right antecubital; 04:18 Follow up: Response: No adverse reaction ay 03:55 Drug: Ondansetron IVP 4 mg IVP once; over 2 minutes Route: IVP; Site: right antecubital;ay 04:18 Follow up: Response: No adverse reaction ay 04:24 Drug: NS 0.9% IV 1000 ml IV at 1000 ml once; to be given as a bolus over 60 minutes ay Route: IV; Rate: 1000 ml; Site: right antecubital; 07:02 Follow up: Response: No adverse reaction; IV Status: Completed infusion; IV Intake: ay 1000ml 06:30 Drug: morphine IVP or IV 4 mg IVP once over 4 mins Route: IVP; Infused Over: 4 mins; ay Site: right antecubital; 06:33 Follow up: Response: No adverse reaction ay 07:02 Follow up: Response: No adverse reaction ay Disposition Summary: 08/12/24 06:48 Discharge Ordered Notes: Location: Home ms3 Condition: Stable ms3 Diagnosis - Abdominal pain, unspecified ms3 - Vomiting ms3 Followup: ms3 - With: Private Physician - When: 2 - 3 days - Reason: Recheck today's complaints Discharge Instructions: - Discharge Summary Sheet ms3 - Abdominal Pain, Adult ms3 - Vomiting, Adult ms3 Forms: - Medication Reconciliation Form ms3 - Antibiotic Education ms3 - Prescription Opioid Use ms3 - Patient Portal Instructions ms3 - Leadership Thank You Letter ms3 Signatures: Dispatcher [employer] EDSherri High RN RN lg3 Myron Shen, DO ms3 Coty Obrien RN RN ay Corrections: (The following items were deleted from the chart) 02:35 02:35 CBC+H.LAB.BRZ ordered. EDMS EDMS 02:35 02:35 COMPREHENSIVE METABOLIC PANEL+C.LAB.BRZ ordered. EDMS EDMS 02:35 02:35 LIPASE+C.LAB.BRZ ordered. EDMS EDMS 02:35 02:35 Urinalysis+U.LAB.BRZ ordered. EDMS EDMS 05:14 05:14 Abdomen Pelvis W Con+CT.RAD.BRZ ordered. EDMS EDMS 05:14 05:14 LACTATE+C.LAB.BRZ ordered. EDMS EDMS
--- NOTE | 2024-08-12 06:48 | ER ---
Nurse's Notes [facility] Name: Mony Taylor Age: 54 yrs Sex: Female : 1970 Arrival Date: 08/12/2024 Time: 01:59 Bed 17 Private MD: Diagnosis: Abdominal pain, unspecified;Vomiting Presentation: 08/12 02:12 Chief complaint: Patient states: left flank pain radiating to left abdomen X3 days. lg3 Coronavirus screen: Client denies travel out of the [place] in the last 14 days. Ebola Screen: Patient negative for fever greater than or equal to 101.5 degrees Fahrenheit, and additional compatible Ebola Virus Disease symptoms. Initial Sepsis Screen: Does the patient meet any 2 criteria? No. Patient's initial sepsis screen is negative. Does the patient have a suspected source of infection? No. Patient's initial sepsis screen is negative. Risk Assessment: Do you want to hurt yourself or someone else? Patient reports no desire to harm self or others. Onset of symptoms was August 09, 2024. 02:12 Method Of Arrival: Wheelchair lg3 02:12 Acuity: AMADOU 3 lg3 Triage Assessment: 02:14 General: Appears in no apparent distress. uncomfortable, Behavior is calm, cooperative. lg3 Pain: Complains of pain in left flank, left abdomen. EENT: No deficits noted. No signs and/or symptoms were reported regarding the EENT system. Neuro: Betancourt Agitation-Sedation Scale (RASS): +1 Restless Level of Consciousness is awake, alert, obeys commands, Oriented to person, place, time, situation. Cardiovascular: No deficits noted. Denies chest pain, shortness of breath. Respiratory: No deficits noted. Airway is patent Respiratory effort is even, unlabored, Respiratory pattern is regular, symmetrical. GI: Reports lower abdominal pain, upper abdominal pain, nausea. : No signs and/or symptoms were reported regarding the genitourinary system. Derm: Skin is intact, is healthy with good turgor, Skin is clammy, Skin is normal, Skin temperature is cool. Musculoskeletal: Circulation, motion, and sensation intact. Range of motion: intact in all extremities. Historical: - Allergies: 02:14 Bactrim; lg3 02:14 Sulfa (Sulfonamide Antibiotics); lg3 - Home Meds: 02:14 carvedilol oral [Active]; Lexapro Oral [Active]; Xanax Oral [Active]; lg3 - PMHx: 02:14 Hypertension; Anxiety; lg3 - PSHx: 02:14 Cholecystectomy; knee (Cholecystectomy); lg3 - Immunization history:: Adult Immunizations up to date. - Infectious Disease History:: Denies. - Social history:: Smoking status: Patient reports the use of cigarette tobacco products, smokes one-half pack cigarettes per day, Patient/guardian denies using alcohol, street drugs. Screenin:30 [facility] ED Fall Risk Assessment (Adult) History of falling in the last 3 months, ay including since admission No falls in past 3 months (0 pts) Confusion or Disorientation No (0 pts) Intoxicated or Sedated No (0 pts) Impaired Gait No (0 pts) Mobility Assist Device Used No (0 pt) Altered Elimination No (0 pt) Score/Fall Risk Level 0 - 2 = Low Risk Oriented to surroundings, Maintained a safe environment, Educated pt \T\ family on fall prevention, incl call for assistance when getting out of bed. Abuse screen: Denies threats or abuse. Nutritional screening: No deficits noted. Tuberculosis screening: No symptoms or risk factors identified. Assessment: 02:30 General: Appears distressed, uncomfortable, Behavior is cooperative, restless. Pain: ay Complains of pain in left lower quadrant Pain currently is 10 out of 10 on a pain scale. Neuro: Level of Consciousness is awake, alert, obeys commands, Oriented to person, place, time, situation, Speech is normal. Cardiovascular: Capillary refill < 3 seconds. Respiratory: Airway is patent Respiratory effort is even, unlabored, Respiratory pattern is regular, symmetrical. GI: Abdomen is flat, Bowel sounds present X 4 quads. Reports upper abdominal pain. GI: Reports nausea, vomiting. : No signs and/or symptoms were reported regarding the genitourinary system. EENT: No signs and/or symptoms were reported regarding the EENT system. Derm: No signs and/or symptoms reported regarding the dermatologic system. Vital Signs: 02:12 BP 148 / 93; Pulse 85; Resp 16 S; Temp 97.8(O); Pulse Ox 99% on R/A; Weight 63.05 kg lg3 (R); Height 5 ft. 5 in. (R); Pain 10/10; 02:48 BP 183 / 97; Pulse 70; Resp 20; Pulse Ox 97% ; ay 04:00 BP 161 / 82; Pulse 75; Resp 19; Pulse Ox 97% ; ay 05:00 BP 173 / 89; Pulse 75; Pulse Ox 97% ; ay 02:12 Body Mass Index 23.13 (63.05 kg, 165.1 cm) lg3 02:12 Pain Scale: Adult lg3 Oliver Coma Score: 02:30 Eye Response: spontaneous(4). Motor Response: obeys commands(6). Verbal Response: ay oriented(5). Total: 15. ED Course: 02:01 Patient arrived in ED. [email or web address] 02:03 Myron Shen DO is Attending Physician. ms3 02:14 Triage completed. lg3 02:14 Arm band placed on right wrist. lg3 02:30 Patient has correct armband on for positive identification. Bed in low position. Call ay light in reach. Side rails up X2. 02:30 No provider procedures requiring assistance completed. Inserted saline lock: 20 gauge ay in right antecubital area, using aseptic technique. 03:16 US Pelvis Complete In Process Unspecified. EDMS 03:30 Coty Obrien, RN is Primary Nurse. ay 05:33 CT Abd/Pelvis - IV Contrast Only In Process Unspecified. EDMS 07:00 IV discontinued, intact, bleeding controlled, No redness/swelling at site. Pressure ay dressing applied. Administered Medications: 03:55 Drug: morphine IVP or IV 4 mg IVP once over 4 mins Route: IVP; Infused Over: 4 mins; ay Site: right antecubital; 04:18 Follow up: Response: No adverse reaction ay 03:55 Drug: Ondansetron IVP 4 mg IVP once; over 2 minutes Route: IVP; Site: right antecubital;ay 04:18 Follow up: Response: No adverse reaction ay 04:24 Drug: NS 0.9% IV 1000 ml IV at 1000 ml once; to be given as a bolus over 60 minutes ay Route: IV; Rate: 1000 ml; Site: right antecubital; 07:02 Follow up: Response: No adverse reaction; IV Status: Completed infusion; IV Intake: ay 1000ml 06:30 Drug: morphine IVP or IV 4 mg IVP once over 4 mins Route: IVP; Infused Over: 4 mins; ay Site: right antecubital; 06:33 Follow up: Response: No adverse reaction ay 07:02 Follow up: Response: No adverse reaction ay Intake: 07:02 IV: 1000ml; Total: 1000ml. ay Outcome: 06:48 Discharge ordered by ms3 07:00 Discharged to home ay 07:00 Discharged to home ambulatory, 07:00 Condition: stable 07:00 Discharge instructions given to patient, Instructed on discharge instructions, follow up and referral plans. Demonstrated understanding of instructions, follow-up care, 07:01 Patient left the ED. ay Signatures: Dispatcher [employer] EDMS Sherri Pichardo RN RN lg3 Myron Shen DO DO ms3 Julia Mann [email or web address] Coty Obrien RN RN ay
[2024-08-12 10:39] VITALS: TEMP 97.8
[2024-08-12 10:40] VITALS: O2SAT 97
[2024-08-12 10:42] VITALS: BP 173/89
== END 2024-08-12 07:01 | disposition home or self-care (01) ==
LOC: ER 01:59
DX: R10.32 Left lower quadrant pain (principal); R11.2 Nausea with vomiting, unspecified; I10 Essential (primary) hypertension; F41.9 Anxiety disorder, unspecified; F17.210 Nicotine dependence, cigarettes, uncomplicated
CPT/HCPCS: 85025; 81001; 36415; 83605; 83690; 80053; 74177; 76856; Q9967; J2405; J7030; 96361; 96374; 96375; 99284